=== PATIENT | female | born 1965 | race Two or more races ===

== ENCOUNTER 2020-02-25 13:00 | Emergency (ER) | payer OTHER ==
[~2020-02-25] VITALS: Ht 157.5 cm; Wt 53.5 kg
--- NOTE | 2020-02-25 13:12 | NUR ---
ER BED 4 PT BIB SELF CHIEF COMPLAINT OF 'TINGLING IN THE HEAD', PER PT, 'I FEEL MY HEAD TINGLING AND I FEEL LIKE ENERGY IS COMING FROM MY HEAD TO MY NECK'. VS CHECKED. AWAITING MD CARRASCO. Addendum: 02/25/20 at 1318 by PK PT DENIES CHEST PAIN OR HEADACHE. DENIES PALPITATIONS
[2020-02-25 13:46] LABS: BASOPHILS % (AUTO) 0.4 % (0.0-2.0); EOSINOPHILS % (AUTO) 2.1 % (0.0-6.0); HEMATOCRIT 42 % (33-45); HEMOGLOBIN 14.2 g/dL (11.5-14.8); LYMPHOCYTES # (AUTO) 1.5 /CMM (0.8-4.8); LYMPHOCYTES % (AUTO) 23.4 % (20.0-44.0); MEAN CORPUSCULAR HGB CONC 34 g/dl (31.0-36.0); MEAN CORPUSCULAR VOLUME 88 fL (82-100); MONOCYTES # (AUTO) 0.3 /CMM (0.1-1.30); MONOCYTES % (AUTO) 4.1 % (2.0-12.0); NEUTROPHILS # (AUTO) 4.5 /CMM (1.8-8.9); PLATELET COUNT (AUTO) 227 /CMM (150-450); RED BLOOD CELL COUNT(AUTO) 4.72 MIL/uL (4.0-5.2); WHITE BLOOD COUNT (AUTO) 6.4 K/uL (4.3-11.0)
[2020-02-25 13:53] LABS: CALCIUM, SERUM 8.7 mg/dL (8.5-10.1); CARBON DIOXIDE 29 mmol/L (21-32); CHLORIDE 99 mmol/L (98-107); CREATININE 0.7 mg/dL (0.6-1.3); GLUCOSE 102 mg/dL (74-106); POTASSIUM 3.7 mmol/L (3.5-5.1); SODIUM SERUM 136 mmol/L (136-145); UREA NITROGEN, BLOOD 14 mg/dL (7-18)
[2020-02-25 15:16] LABS: THYROID STIMULATING HORMONE 0.856 uIU/mL (0.358-3.74)
--- NOTE | 2020-02-25 15:46 | NUR ---
D/C HOME Patient discharged to home in stable condition. Written and verbal after care instructions given. Patient verbalizes understanding of instruction.
[2020-02-25 15:48] VITALS: BP 132/77
== END 2020-02-25 15:49 | disposition home or self-care (01) ==
LOC: ER 13:18
DX: F41.9 Anxiety disorder, unspecified (principal); Z88.0 Allergy status to penicillin; Z60.2 Problems related to living alone
CPT/HCPCS: 36415; 70450-TC; 71045-TC; 80048-TC; 84439-TC; 84443-TC; 84484-TC; 85025-TC

== ENCOUNTER 2020-09-06 18:35 | Emergency (ER) | payer OTHER ==
[~2020-09-06] VITALS: Ht 157.5 cm; Wt 54.4 kg
[2020-09-06 18:45] VITALS: BP 142/86
--- NOTE | 2020-09-06 18:52 | NUR ---
BIBFAMILY FROM HOME TO TRIAGE ROOM. AAOX4. NOT IN RESP DISTRESS, BREATHING EVEN AND UNLABORED. AMBULATORY. BROUGHT IN FOR WORSENING NAUSEA STARTED LAST NIGHT. PT APEARS ANXIOUS. AWAITING FOR BED AND MD FOR EVAL.
--- NOTE | 2020-09-06 19:25 | NUR ---
PT IS TO BE BROUGHT TO A ROOM PT IS NOT IN THE TRIAGE ROOM.
--- NOTE | 2020-09-06 19:28 | NUR ---
CALLED AND CHECK PT BUT NOT IN TRIAGE ROOM. MD NOTIFIED THAT PT IS NOT IN ER.
== END 2020-09-06 19:30 | disposition left against medical advice (07) ==
LOC: ER 18:35
DX: Z53.21 Procedure and treatment not carried out due to patient leaving prior to being seen by health care provider (principal); R11.0 Nausea; F41.9 Anxiety disorder, unspecified

== ENCOUNTER → 2025-02-24 | Emergency (ER) | payer OTHER ==
[~2025-02-24] VITALS: Ht 157.5 cm; Wt 54.4 kg
[~2025-02-24] MED LIST: ONDANSETRON HCL/PF 4 MG/2 ML VIAL ONE
[2025-02-24 13:13] VITALS: TEMP 98.5
[2025-02-24 13:51] LABS: PLATELET COUNT (AUTO) 206 K/uL (150-450); RED BLOOD CELL COUNT(AUTO) 4.29 MIL/uL (4.0-5.2); RED CELL DISTRIBUTION WIDTH 13.5 % (11.5-15.0); WHITE BLOOD COUNT (AUTO) 8.2 K/uL (4.3-11.0)
[2025-02-24] MEDS: ONDANSETRON HCL/PF 4 MG/2 ML VIAL IV ONE (13:51)
[2025-02-24 13:57] LABS: CALCIUM, SERUM 8.4 mg/dL (8.5-10.1); CREATININE 0.7 mg/dL (0.6-1.3); SODIUM SERUM 131 mmol/L (136-145); UREA NITROGEN, BLOOD 22 mg/dL (7-18)
[2025-02-24 15:33] VITALS: BP 119/70; O2SAT 98
== END | disposition left against medical advice (07) ==
LOC: ER 13:12
DX: R07.89 Other chest pain (principal); R42 Dizziness and giddiness; F41.9 Anxiety disorder, unspecified; E78.00 Pure hypercholesterolemia, unspecified; Z88.0 Allergy status to penicillin
CPT/HCPCS: 99285; 71045; 93005 ×2; 85025; 80048; 36415; 84484; J2405